=== PATIENT | male | born 1960 | race African-American/Black ===

== ENCOUNTER 2019-04-05 13:40 | Emergency (ER) | payer OTHER ==
[~2019-04-05] VITALS: Ht 182.9 cm; Wt 79.5 kg
[2019-04-05 13:50] VITALS: Ht 182.9 cm; Wt 79.5 kg
[2019-04-05] MEDS ORDERED: REMERON15 MG PO (13:52)
[2019-04-05] MEDS ORDERED: INVEGA SUS39 MG/0.25 (13:52)
[2019-04-05] MEDS ORDERED: FLUPHENAZINE H2.5 MG PO (13:52)
[2019-04-05] MEDS ORDERED: LISINOPRIL5 MG PO (13:53)
[2019-04-05] MEDS ORDERED: GLUCOPHAGE1000 MG (13:54)
[2019-04-05] MEDS ORDERED: ATIVAN0.5 MG PO (13:54)
[2019-04-05] MEDS ORDERED: PROPRANOLOL HCL20 MG PO (13:55)
[2019-04-05 14:13] LABS: BASOPHILS 0.4 % (0-2); EOSINOPHILS 2.8 % (0-7); HEMATOCRIT 45.8 % (42.0-54.0); HEMOGLOBIN 15.7 g/dL (13.5-17.5); IMMATURE GRANULOCYTES 0.3 % (0-5); LYMPHOCYTES 42.1 % (15-50); MCH 27.1 pg (26.0-34.0); MCHC 34.3 g/dL (31.0-37.0); MEAN PLATELET VOLUME 10.3 fL (7.4-10.4); MONOCYTES 6.7 % (2-11); NEUTROPHILS 47.7 % (40-80); PLATELET COUNT 261 10x3/uL (130-400); RDW 14.7 % (11.5-14.5); WBC 10.6 10x3/uL (4.8-10.8)
[2019-04-05 14:20] LABS: CALC OSMOLALITY 282 mosm/kg (275-300); CALCIUM 9.7 mg/dL (8.5-10.1); CARBON DIOXIDE 28.9 mmol/L (21.0-32.0); CHLORIDE - SERUM 104 mmol/L (98-107); CREATININE - SERUM 1.2 mg/dL (0.6-1.3); GLUCOSE 127 mg/dL (74-106); POTASSIUM - SERUM 4.6 mmol/L (3.5-5.1); SODIUM 141 mmol/L (136-145); UREA NITROGEN 12 mg/dL (7-18); eGFR NON AFRICAN AMERICAN 66 mL/min (90-120)
[2019-04-05 14:37] LABS: ALKALINE PHOSPHATASE 93 U/L (46-116); ALT (SGPT) 57 U/L (10-68); BILIRUBIN - TOTAL 0.63 mg/dL (0.2-1.3); CKMB 1.4 U/L (0.0-3.6); CREATINE KINASE 361 UL (21-232); TROPONIN-I < 0.017 ng/mL (0.000-0.060)
[2019-04-05] MEDS ORDERED: NORVASC10 MG PO (15:24)
[2019-04-05 15:55] VITALS: BP 177/109
== END 2019-04-05 15:58 | disposition home or self-care (01) ==
LOC: D.ER 13:40
PROVIDERS: Emergency Medicine
DX: I10 Essential (primary) hypertension (principal); E11.9 Type 2 diabetes mellitus without complications; Z72.0 Tobacco use; J45.909 Unspecified asthma, uncomplicated; Z79.84 Long term (current) use of oral hypoglycemic drugs